=== PATIENT | male | born 1960 | race Caucasian/White ===

== ENCOUNTER 2017-12-06 12:48 | Outpatient (CLI) | payer BC | END 2017-12-06 23:59 | LOC: RAD 12:48 | PROVIDERS: ATTEND Nurse Practitioner Family | DX: L03.115 Cellulitis of right lower limb (principal); E11.610 Type 2 diabetes mellitus with diabetic neuropathic arthropathy | CPT/HCPCS: 73718 ==

== ENCOUNTER 2021-09-21 10:55 | Inpatient (IN) | payer BC ==
[~2021-09-21] VITALS: Ht 177.8 cm; Wt 131.5 kg
[2021-09-21] MEDS ORDERED: METF-436 PO (14:17)
[2021-09-21] MEDS ORDERED: HYDR25TA5 PO (14:17)
[2021-09-21] MEDS ORDERED: MONT-40 PO (14:17)
[2021-09-21] MEDS ORDERED: ATOR20TA PO (14:17)
[2021-09-21] MEDS ORDERED: LISI10TA27 PO (14:17)
[2021-09-21] MEDS ORDERED: TRAZ-251 PO (14:18)
[2021-09-21] MEDS ORDERED: LANS30CA56 PO (14:18)
[2021-09-21] MEDS ORDERED: METF-438 PO (14:18)
[2021-09-21] MEDS ORDERED: AMLO10TA13 PO (14:18)
[2021-09-21] MEDS ORDERED: RIFA550T PO (14:18)
[2021-09-21] MEDS ORDERED: TELM80TA9 PO (14:18)
[2021-09-21] MEDS ORDERED: NAPR-996 PO (14:18)
[2021-09-21] MEDS ORDERED: dextrose 50%-water 50ml dispensing syringe IV PRN ×3 (14:20→15:55)
[2021-09-21] MEDS ORDERED: dextrose ORAL solution 15 GM/59 ML bottle PO PRN ×2 (14:20)
[2021-09-21] MEDS ORDERED: glucagon, human recombinant 1mg kit SUBCUT PRN (14:20)
[2021-09-21] MEDS ORDERED: MESSAGE TO PHARMACY PO ONE (14:20)
[2021-09-21] MEDS ORDERED: LORazepam 2 mg/ml vial IV ONE (14:20)
[2021-09-21 15:27] LABS: BASOPHILS % (AUTO) 0.3 % (0-1); EOSINOPHILS % (AUTO) 0.4 % (0-6); HEMATOCRIT 36.1 % (42.0-52.0); HEMOGLOBIN 12.5 g/dl (14.0-17.9); LYMPHOCYTES # (AUTO) 0.4 X10'3 (1.1-4.8); LYMPHOCYTES % (AUTO) 8.2 % (21-51); MEAN CORPUSCULAR HEMOGLOBIN 33.7 PG (27.0-31.0); MEAN CORPUSCULAR HGB CONC 34.7 g/dL (33.0-36.5); MEAN CORPUSCULAR VOLUME 97.1 FL (78-98); MEAN PLATELET VOLUME 8.2 FL (7.4-10.4); MONOCYTES # (AUTO) 0.7 X10'3 (0-0.9); NEUTROPHILS # (AUTO) 3.9 X10'3 (1.8-7.7); NEUTROPHILS % (AUTO) 78.1 % (42-75); PLATELET COUNT 137 X10'3 (140-440); RED BLOOD COUNT 3.72 X10'6 (4.70-6.10); RED CELL DISTRIBUTION WIDTH 15.2 % (11.5-14.5)
[2021-09-21] MEDS ORDERED: potassium Cl 20 mEq SR tablet PO PRN (15:35)
[2021-09-21] MEDS ORDERED: magnesium 2GM in 50ml NS 50 ML IV PRN (15:35)
[2021-09-21] MEDS ORDERED: mag hydrox/Alum hydrox/simeth 30ml oral suspension PO PRN (15:35)
[2021-09-21] MEDS ORDERED: magnesium hydroxide 30ml (MOM) UD suspension PO PRN (15:35)
[2021-09-21] MEDS ORDERED: magnesium 4gm in 100ml NS 100 ML IV PRN (15:35)
[2021-09-21] MEDS ORDERED: potassium CL 10mEq/100ml bag 100 ML IV PRN (15:35)
[2021-09-21] MEDS ORDERED: magnesium Cl slow-release 64mg tablet PO PRN (15:35)
[2021-09-21] MEDS ORDERED: acetaminophen 325mg tablet PO PRN (15:35)
[2021-09-21] MEDS ORDERED: ondansetron/PF 4mg/2ml inj IV PRN (15:35)
[2021-09-21 15:45] LABS: ALANINE AMINOTRANSFERASE 92 U/L (12-78); ALBUMIN 2.5 G/DL (3.4-5.0); ALKALINE PHOSPHATASE 300 IU/L (46-116); ANION GAP 4 (8-16); ASPARTATE AMINO TRANSFERASE 138 U/L (10-37); BILIRUBIN,TOTAL 4.2 MG/DL (0.1-1.0); BLOOD UREA NITROGEN 9 MG/DL (7-18); BUN/CREATININE RATIO 12.2 (5.4-32.0); CALCIUM 8.6 MG/DL (8.5-10.1); CHLORIDE 99 MMOL/L (99-107); CREATININE 0.74 MG/DL (0.60-1.10); GLUCOSE 257 MG/DL (70-104); POTASSIUM 4.1 MMOL/L (3.5-5.1); SODIUM 138 MMOL/L (135-145); TOTAL CARBON DIOXIDE 34.6 MMOL/L (24-32); eGFR > 90 ML/MIN
[2021-09-21 15:50] LABS: ALBUMIN/GLOBULIN RATIO 0.7 (1.1-1.5); TOTAL PROTEIN 6.2 G/DL (6.4-8.2)
[2021-09-21] MEDS ORDERED: haloperidol lactate 5mg/ml inj IM PRN (15:55)
[2021-09-21] MEDS ORDERED: haloperidol 5mg tablet PO PRN (15:55)
[2021-09-21 16:07] LABS: HEMOGLOBIN A1C 6.3 % (4.5-6.2)
[2021-09-21] MEDS: HYDROmorphone inj. 0.5 MG/0.5 ML DISP.SYRIN IV PRN ×2 (16:07→18:29)
[2021-09-21] MEDS: normal saline 1000ml 1,000 ML IV SCH (16:09)
[2021-09-21 16:13] LABS: PLATELET ESTIMATE DECREASED; STOMATOCYTES 1+
[2021-09-21 17:08] LABS: MAGNESIUM 1.3 MG/DL (1.5-2.4)
--- NOTE | 2021-09-21 18:25 | NUR ---
Patient in room [facility]. I have received report from Lilian RNT and had the opportunity to ask questions and assume patient care.
[2021-09-21] MEDS: insulin Lispro (HumaLOG) vial - multi-dose SQ SCH (19:28)
[2021-09-21 19:44] VITALS: BP 133/72
[2021-09-21 20:00] VITALS: BP 133/72
[2021-09-21] MEDS: docusate sod 100mg capsule PO SCH (20:00)
[2021-09-21] MEDS: K and/or MAG REPLACEMENT MC SCH (20:00)
[2021-09-21] MEDS ORDERED: thiamine 100mg/ml 2ml inj. IV SCH (21:00)
[2021-09-21] MEDS: vancomycin 125mg/5ml ORAL solution 5ml UD oral syringe PO SCH (21:02)
[2021-09-21] MEDS: thiamine inj. 200 MG in normal saline 100ml IV soln 100 ML IV SCH (21:03)
[2021-09-21] MEDS: LORazepam 2 mg/ml vial IV PRN (21:10)
[2021-09-21] MEDS: insulin glargine (Lantus) pen - multi-dose SQ SCH (21:20)
[2021-09-22] VITALS (7 sets, daily range): BP systolic 132–149; BP diastolic 73–87
[2021-09-22] MEDS: vancomycin 125mg/5ml ORAL solution 5ml UD oral syringe PO SCH ×4 (01:45→20:43)
--- NOTE | 2021-09-22 04:30 | NUR ---
Pt diaphoretic, ETOH assessment completed and Ativan 2mg given .VSS at this time.Will continue to monitor.
[2021-09-22] MEDS: LORazepam 2 mg/ml vial IV PRN ×3 (04:34→22:59)
[2021-09-22] MEDS: normal saline 1000ml 1,000 ML IV SCH ×2 (05:53→20:11)
[2021-09-22 07:06] LABS: BASOPHILS # (AUTO) 0.1 X10'3 (0-0.2); BASOPHILS % (AUTO) 1.1 % (0-1); EOSINOPHILS # (AUTO) 0.1 X10'3 (0-0.9); EOSINOPHILS % (AUTO) 2.3 % (0-6); HEMATOCRIT 40.3 % (42.0-52.0); HEMOGLOBIN 13.7 g/dl (14.0-17.9); LYMPHOCYTES % (AUTO) 18.8 % (21-51); MEAN CORPUSCULAR HEMOGLOBIN 33.2 PG (27.0-31.0); MEAN CORPUSCULAR VOLUME 97.8 FL (78-98); MEAN PLATELET VOLUME 8.6 FL (7.4-10.4); MONOCYTES # (AUTO) 0.6 X10'3 (0-0.9); NEUTROPHILS # (AUTO) 3.6 X10'3 (1.8-7.7); NEUTROPHILS % (AUTO) 66.8 % (42-75); PLATELET COUNT 152 X10'3 (140-440); RED BLOOD COUNT 4.12 X10'6 (4.70-6.10); RED CELL DISTRIBUTION WIDTH 14.9 % (11.5-14.5); WHITE BLOOD COUNT 5.3 X10'3 (4.5-11.0)
--- NOTE | 2021-09-22 07:19 | NUR ---
Patient was comfortably resting when I made rounds, denied shakiness or anxiety.
[2021-09-22] MEDS: enoxaparin 40mg/0.4ml syringe SUBCUT SCH (07:25)
[2021-09-22 07:38] LABS: ALANINE AMINOTRANSFERASE 102 U/L (12-78); ALBUMIN 2.7 G/DL (3.4-5.0); ALKALINE PHOSPHATASE 316 IU/L (46-116); ANION GAP 6 (8-16); ASPARTATE AMINO TRANSFERASE 174 U/L (10-37); BILIRUBIN,TOTAL 4.6 MG/DL (0.1-1.0); BLOOD UREA NITROGEN 8 MG/DL (7-18); BUN/CREATININE RATIO 10.5 (5.4-32.0); CALCIUM 9.1 MG/DL (8.5-10.1); CHLORIDE 102 MMOL/L (99-107); CREATININE 0.76 MG/DL (0.60-1.10); GLUCOSE 135 MG/DL (70-104); SODIUM 142 MMOL/L (135-145); TOTAL CARBON DIOXIDE 34.3 MMOL/L (24-32); eGFR > 90 ML/MIN
[2021-09-22 07:39] LABS: ALBUMIN/GLOBULIN RATIO 0.7 (1.1-1.5); TOTAL PROTEIN 6.8 G/DL (6.4-8.2)
[2021-09-22] MEDS: K and/or MAG REPLACEMENT MC SCH ×2 (08:00→20:00)
[2021-09-22] MEDS: docusate sod 100mg capsule PO SCH ×2 (08:00→20:00)
--- NOTE | 2021-09-22 08:22 | NUR ---
Nutrition Consult "DM, etoh, abdominal pain": Pt hx T2DM A1C 6.3 appropriate. Pt receiving routine thiamin, folic acid on carb controlled diet per EMR. Will monitor for nutrition intervention needs this admit. Addendum: 09/22/21 at [address] Amended: Links added.
[2021-09-22] MEDS: thiamine inj. 200 MG in normal saline 100ml IV soln 100 ML IV SCH ×3 (08:37→20:44)
[2021-09-22] MEDS: folic acid 1mg/0.2ml inj IV SCH (08:37)
[2021-09-22] MEDS: HYDROmorphone inj. 0.5 MG/0.5 ML DISP.SYRIN IV PRN ×2 (08:48→20:43)
[2021-09-22] MEDS ORDERED: LIDOcaine 1% (10mg/ml)w/preservative injection 20ml MDV SQ ONE (09:20)
--- NOTE | 2021-09-22 15:32 | NUR ---
IR staff at bedside getting ready for paracentesis. Patient was given Ativan 2mg IV as per his request prior to procedure
--- NOTE | 2021-09-22 15:55 | NUR ---
Paracentesis completed. IR nurse reported 2500ml of fluid was taken out
[2021-09-22 16:36] LABS: GLUCOSE,BODY FLUID 198 MG/DL
[2021-09-22 16:45] LABS: TOTAL PROTEIN,BODY FLUID < 2.0 G/DL
--- NOTE | 2021-09-22 17:00 | NUR ---
Patient requested to be disconnected from IV fluid running as he wants "a break from it and from pump beeping" He said "I've been drinking water to hydrate myself!"
[2021-09-22 17:10] LABS: LYMPHOCYTES,BODY FLUID 44 %; MONOCYTES,BODY FLUID 37 %; NEUTROPHILS,BODY FLUID 19 %
[2021-09-22 17:11] LABS: BF RBC COUNT 88 /CU MM; BF WBC COUNT 148 /CU MM (0-1000); BFAPPEAR CLEAR; BFCOLOR YELLOW; BFVOLUME 56 ML
[2021-09-22] MEDS: insulin Lispro (HumaLOG) vial - multi-dose SQ SCH (20:42)
--- NOTE | 2021-09-22 22:20 | NUR ---
Pt reported falling while coming from the bathroom landing on his left knee and getting some visible scratches to rt shoulder.Pt states that foot got his one foot stepped over a loose sock hence losing balance and falling .Bruises were caused by the linen humper which was between the foot of the bed and wall.pt denies any pain to the left knee but has visible bruises to rt shoulder.Pt denies any other fall related concerns .Vitals WN for Pt .Will continue to monitor
[2021-09-22] MEDS: insulin glargine (Lantus) pen - multi-dose SQ SCH (22:42)
[2021-09-23] VITALS: BP 147/83
[2021-09-23] MEDS: vancomycin 125mg/5ml ORAL solution 5ml UD oral syringe PO SCH ×4 (02:05→19:28)
[2021-09-23] MEDS: HYDROmorphone inj. 0.5 MG/0.5 ML DISP.SYRIN IV PRN ×2 (05:34→09:21)
[2021-09-23 06:32] LABS: BASOPHILS # (AUTO) 0.1 X10'3 (0-0.2); BASOPHILS % (AUTO) 1.2 % (0-1); EOSINOPHILS # (AUTO) 0.2 X10'3 (0-0.9); EOSINOPHILS % (AUTO) 3.8 % (0-6); HEMATOCRIT 35.8 % (42.0-52.0); HEMOGLOBIN 12.4 g/dl (14.0-17.9); LYMPHOCYTES % (AUTO) 21.7 % (21-51); MEAN CORPUSCULAR HEMOGLOBIN 33.8 PG (27.0-31.0); MEAN CORPUSCULAR HGB CONC 34.7 g/dL (33.0-36.5); MEAN CORPUSCULAR VOLUME 97.4 FL (78-98); MEAN PLATELET VOLUME 8.1 FL (7.4-10.4); MONOCYTES # (AUTO) 0.6 X10'3 (0-0.9); MONOCYTES % (AUTO) 12.7 % (2-12); NEUTROPHILS # (AUTO) 2.8 X10'3 (1.8-7.7); NEUTROPHILS % (AUTO) 60.6 % (42-75); PLATELET COUNT 129 X10'3 (140-440); RED BLOOD COUNT 3.68 X10'6 (4.70-6.10); RED CELL DISTRIBUTION WIDTH 15.1 % (11.5-14.5); WHITE BLOOD COUNT 4.6 X10'3 (4.5-11.0)
--- NOTE | 2021-09-23 06:47 | NUR ---
Report given to Bhakti ANGELES.Questions answered and plan of care reviewed
[2021-09-23 06:55] LABS: ALANINE AMINOTRANSFERASE 94 U/L (12-78); ALBUMIN 2.2 G/DL (3.4-5.0); ALKALINE PHOSPHATASE 276 IU/L (46-116); ANION GAP 7 (8-16); ASPARTATE AMINO TRANSFERASE 192 U/L (10-37); BILIRUBIN,TOTAL 4.7 MG/DL (0.1-1.0); BLOOD UREA NITROGEN 8 MG/DL (7-18); BUN/CREATININE RATIO 13.8 (5.4-32.0); CALCIUM 8.8 MG/DL (8.5-10.1); CHLORIDE 103 MMOL/L (99-107); CREATININE 0.58 MG/DL (0.60-1.10); GLUCOSE 110 MG/DL (70-104); POTASSIUM 3.6 MMOL/L (3.5-5.1); SODIUM 142 MMOL/L (135-145); TOTAL CARBON DIOXIDE 32.5 MMOL/L (24-32); eGFR > 90 ML/MIN
[2021-09-23 07:00] VITALS: BP 163/91
--- NOTE | 2021-09-23 07:00 | NUR ---
Patient in room [facility]. I have received report from KARTHIK Quintana and had the opportunity to ask questions and assume patient care.
[2021-09-23 07:08] LABS: ALBUMIN/GLOBULIN RATIO 0.6 (1.1-1.5); TOTAL PROTEIN 5.7 G/DL (6.4-8.2)
[2021-09-23] MEDS: docusate sod 100mg capsule PO SCH ×2 (08:00→19:28)
[2021-09-23] MEDS: K and/or MAG REPLACEMENT MC SCH ×2 (08:00→20:00)
[2021-09-23] MEDS: thiamine inj. 200 MG in normal saline 100ml IV soln 100 ML IV SCH ×3 (09:02→20:26)
[2021-09-23] MEDS: enoxaparin 40mg/0.4ml syringe SUBCUT SCH (09:03)
[2021-09-23] MEDS: folic acid 1mg/0.2ml inj IV SCH (09:03)
[2021-09-23] MEDS: insulin Lispro (HumaLOG) vial - multi-dose SQ SCH ×3 (09:15→19:32)
[2021-09-23 11:00] VITALS: BP 138/69
[2021-09-23] MEDS: LORazepam 2 mg/ml vial IV PRN ×2 (12:04→21:33)
[2021-09-23] MEDS: HYDROmorphone/PF 0.2 MG/ML SYRINGE IV PRN ×2 (15:55→20:27)
[2021-09-23 18:00] VITALS: BP 158/81
--- NOTE | 2021-09-23 18:20 | NUR ---
Problems reprioritized. Patient report given, questions answered & plan of care reviewed with KARTHIK Rubio.
--- NOTE | 2021-09-23 18:42 | NUR ---
Patient in room [facility]. I have received report from KENDRICK ANGELES and had the opportunity to ask questions and assume patient care.
[2021-09-23] MEDS: insulin glargine (Lantus) pen - multi-dose SQ SCH (21:41)
[2021-09-23] MEDS: LORazepam 1 MG tablet PO PRN (23:46)
[2021-09-24] VITALS: BP 142/85
[2021-09-24] MEDS: vancomycin 125mg/5ml ORAL solution 5ml UD oral syringe PO SCH ×4 (02:37→20:11)
[2021-09-24] MEDS: LORazepam 1 MG tablet PO PRN ×5 (02:42→22:08)
[2021-09-24 06:04] LABS: BASOPHILS % (AUTO) 0.9 % (0-1); EOSINOPHILS # (AUTO) 0.2 X10'3 (0-0.9); EOSINOPHILS % (AUTO) 3.7 % (0-6); HEMATOCRIT 37.3 % (42.0-52.0); HEMOGLOBIN 12.7 g/dl (14.0-17.9); LYMPHOCYTES # (AUTO) 1.1 X10'3 (1.1-4.8); LYMPHOCYTES % (AUTO) 21.5 % (21-51); MEAN CORPUSCULAR HEMOGLOBIN 33.4 PG (27.0-31.0); MEAN CORPUSCULAR HGB CONC 34.1 g/dL (33.0-36.5); MEAN PLATELET VOLUME 7.8 FL (7.4-10.4); MONOCYTES # (AUTO) 0.6 X10'3 (0-0.9); MONOCYTES % (AUTO) 12.5 % (2-12); NEUTROPHILS % (AUTO) 61.4 % (42-75); PLATELET COUNT 126 X10'3 (140-440); RED BLOOD COUNT 3.81 X10'6 (4.70-6.10); RED CELL DISTRIBUTION WIDTH 15.5 % (11.5-14.5)
[2021-09-24 06:17] LABS: ALANINE AMINOTRANSFERASE 104 U/L (12-78); ALBUMIN 2.2 G/DL (3.4-5.0); ALKALINE PHOSPHATASE 302 IU/L (46-116); ANION GAP 6 (8-16); ASPARTATE AMINO TRANSFERASE 207 U/L (10-37); BILIRUBIN,TOTAL 5.5 MG/DL (0.1-1.0); BLOOD UREA NITROGEN 9 MG/DL (7-18); BUN/CREATININE RATIO 14.5 (5.4-32.0); CALCIUM 8.5 MG/DL (8.5-10.1); CHLORIDE 102 MMOL/L (99-107); CREATININE 0.62 MG/DL (0.60-1.10); GLUCOSE 94 MG/DL (70-104); POTASSIUM 3.4 MMOL/L (3.5-5.1); SODIUM 141 MMOL/L (135-145); TOTAL CARBON DIOXIDE 32.7 MMOL/L (24-32); eGFR > 90 ML/MIN
[2021-09-24 06:26] LABS: ALBUMIN/GLOBULIN RATIO 0.6 (1.1-1.5); TOTAL PROTEIN 5.7 G/DL (6.4-8.2)
--- NOTE | 2021-09-24 06:36 | NUR ---
Problems reprioritized. Patient report given, questions answered & plan of care reviewed with SANDRA ANGELES.
[2021-09-24 08:00] VITALS: BP 151/91
[2021-09-24] MEDS: docusate sod 100mg capsule PO SCH ×2 (08:00→20:00)
[2021-09-24] MEDS: K and/or MAG REPLACEMENT MC SCH ×2 (08:00→20:08)
[2021-09-24] MEDS: HYDROmorphone inj. 0.5 MG/0.5 ML DISP.SYRIN IV PRN ×3 (09:22→20:17)
[2021-09-24] MEDS: thiamine inj. 200 MG in normal saline 100ml IV soln 100 ML IV SCH ×2 (09:29→14:12)
[2021-09-24] MEDS: folic acid 1mg/0.2ml inj IV SCH (09:30)
[2021-09-24] MEDS: potassium Cl 20 mEq SR tablet PO PRN ×2 (09:36→14:13)
[2021-09-24] MEDS: enoxaparin 40mg/0.4ml syringe SUBCUT SCH (09:36)
[2021-09-24] MEDS: spironolactone 25 MG tablet PO SCH (09:42)
[2021-09-24] MEDS: furosemide 40mg tablet PO SCH (09:43)
[2021-09-24 12:00] VITALS: BP 124/74
[2021-09-24] MEDS ORDERED: chloestyramine/aspartame 4gm packet PO ONE (12:50)
[2021-09-24] MEDS: insulin Lispro (HumaLOG) vial - multi-dose SQ SCH ×2 (14:04→20:18)
--- NOTE | 2021-09-24 18:30 | NUR ---
Patient in room [facility]. I have received report from KARTHIK Bustillos and had the opportunity to ask questions and assume patient care. Addendum: 09/24/21 at 2114 by Lesley Srivastava RN Amended: Links added.
--- NOTE | 2021-09-24 20:02 | NUR ---
Report given to Korina ANGELES, all questions answered.
[2021-09-24] MEDS ORDERED: potassium Cl 20 mEq SR tablet PO PRN ×2 (20:05)
[2021-09-24] MEDS ORDERED: potassium Cl 40MEQ/1/2NS 520ml 520 ML IV PRN (20:05)
[2021-09-24] MEDS ORDERED: magnesium Cl slow-release 64mg tablet PO PRN (20:05)
[2021-09-24] MEDS ORDERED: magnesium 4gm in 100ml NS 100 ML IV PRN (20:05)
[2021-09-24] MEDS: rifaximin 550mg tablet PO SCH (20:11)
[2021-09-24] MEDS: lactobacillus rhamnosus 10,000 MMU CELLS/CAPSULE PO SCH (20:12)
[2021-09-24] MEDS: traZODone 50mg tablet PO SCH (20:12)
[2021-09-24] MEDS: atorvastatin 20mg tablet PO SCH (20:12)
[2021-09-24 20:30] VITALS: BP 141/83
[2021-09-24] MEDS: insulin glargine (Lantus) pen - multi-dose SQ SCH (22:11)
[2021-09-24 22:17] VITALS: BP 156/88
[2021-09-25] MEDS: vancomycin 125mg/5ml ORAL solution 5ml UD oral syringe PO SCH ×4 (02:24→20:48)
[2021-09-25] MEDS: LORazepam 1 MG tablet PO PRN ×2 (02:25→20:54)
--- NOTE | 2021-09-25 02:30 | NUR ---
ativan given per pt request, some "shaking" pt states Addendum: 09/25/21 at 0230 by Lesley Srivastava RN Amended: Links added.
[2021-09-25 05:54] LABS: BASOPHILS # (AUTO) 0.1 X10'3 (0-0.2); EOSINOPHILS # (AUTO) 0.2 X10'3 (0-0.9); EOSINOPHILS % (AUTO) 4.1 % (0-6); HEMATOCRIT 35.9 % (42.0-52.0); HEMOGLOBIN 12.4 g/dl (14.0-17.9); LYMPHOCYTES # (AUTO) 1.1 X10'3 (1.1-4.8); LYMPHOCYTES % (AUTO) 20.5 % (21-51); MEAN CORPUSCULAR HEMOGLOBIN 33.6 PG (27.0-31.0); MEAN CORPUSCULAR HGB CONC 34.6 g/dL (33.0-36.5); MEAN PLATELET VOLUME 7.9 FL (7.4-10.4); MONOCYTES # (AUTO) 0.8 X10'3 (0-0.9); MONOCYTES % (AUTO) 14.5 % (2-12); NEUTROPHILS # (AUTO) 3.2 X10'3 (1.8-7.7); NEUTROPHILS % (AUTO) 59.9 % (42-75); PLATELET COUNT 116 X10'3 (140-440); RED CELL DISTRIBUTION WIDTH 15.5 % (11.5-14.5); WHITE BLOOD COUNT 5.3 X10'3 (4.5-11.0)
--- NOTE | 2021-09-25 06:11 | NUR ---
Problems reprioritized. Patient report given, questions answered & plan of care reviewed with KARTHIK CABRERA. Addendum: 09/25/21 at 0612 by eLsley Srivastava RN Amended: Links added.
[2021-09-25 06:17] LABS: ALANINE AMINOTRANSFERASE 94 U/L (12-78); ALKALINE PHOSPHATASE 274 IU/L (46-116); ANION GAP 8 (8-16); ASPARTATE AMINO TRANSFERASE 159 U/L (10-37); BILIRUBIN,TOTAL 5.4 MG/DL (0.1-1.0); BLOOD UREA NITROGEN 9 MG/DL (7-18); BUN/CREATININE RATIO 15.8 (5.4-32.0); CALCIUM 8.8 MG/DL (8.5-10.1); CHLORIDE 103 MMOL/L (99-107); CREATININE 0.57 MG/DL (0.60-1.10); GLUCOSE 101 MG/DL (70-104); SODIUM 142 MMOL/L (135-145); TOTAL CARBON DIOXIDE 31.2 MMOL/L (24-32); eGFR > 90 ML/MIN
[2021-09-25 06:24] LABS: ALBUMIN/GLOBULIN RATIO 0.6 (1.1-1.5); POTASSIUM 3.6 MMOL/L (3.5-5.1); TOTAL PROTEIN 5.5 G/DL (6.4-8.2)
--- NOTE | 2021-09-25 06:30 | NUR ---
Patient in room [facility]. I have received report from Bryn hodgson and had the opportunity to ask questions and assume patient care.
[2021-09-25] MEDS: lansoprazole 15mg solutab PO SCH (07:45)
[2021-09-25] MEDS: rifaximin 550mg tablet PO SCH ×2 (07:45→20:46)
[2021-09-25] MEDS: montelukast 10mg tablet PO SCH (07:47)
[2021-09-25] MEDS: losartan 50mg tablet PO SCH (07:48)
[2021-09-25] MEDS: docusate sod 100mg capsule PO SCH ×2 (07:49→20:00)
[2021-09-25] MEDS: lisinopril 10 MG tablet PO SCH (07:49)
[2021-09-25] MEDS: lactobacillus rhamnosus 10,000 MMU CELLS/CAPSULE PO SCH ×2 (07:49→20:47)
[2021-09-25] MEDS: furosemide 40mg tablet PO SCH (07:49)
[2021-09-25] MEDS: enoxaparin 40mg/0.4ml syringe SUBCUT SCH (07:50)
[2021-09-25] MEDS: spironolactone 25 MG tablet PO SCH (07:52)
[2021-09-25] MEDS: HYDROmorphone inj. 0.5 MG/0.5 ML DISP.SYRIN IV PRN ×3 (07:54→20:55)
[2021-09-25 08:00] VITALS: BP 142/83
[2021-09-25] MEDS: K and/or MAG REPLACEMENT MC SCH ×4 (08:00→20:00)
--- NOTE | 2021-09-25 09:40 | NUR ---
pt did not eat breakfast and was a blood sugar of 111. no coverage needed
[2021-09-25] MEDS: chloestyramine/aspartame 4gm packet PO SCH (11:08)
[2021-09-25 11:25] VITALS: BP 123/78
[2021-09-25] MEDS: insulin Lispro (HumaLOG) vial - multi-dose SQ SCH ×2 (14:11→18:59)
[2021-09-25] MEDS: LORazepam 2 mg/ml vial IV PRN (14:22)
--- NOTE | 2021-09-25 14:28 | NUR ---
pt had a 1200 BS of 153 at lunch, pt wasn't feeling like eating much. so i just replaced pts correctional dose.
[2021-09-25] MEDS ORDERED: LORazepam 2 mg/ml vial IV PRN (15:55)
--- NOTE | 2021-09-25 18:17 | NUR ---
Patient in room [facility]. I have received report from KARTHIK Ravi and had the opportunity to ask questions and assume patient care.
--- NOTE | 2021-09-25 18:23 | NUR ---
Problems reprioritized. Patient report given, questions answered & plan of care reviewed with martin hodgson.
[2021-09-25 20:00] VITALS: BP 144/85
[2021-09-25] MEDS ORDERED: loperamide 2mg capsule PO PRN (20:25)
[2021-09-25] MEDS: atorvastatin 20mg tablet PO SCH (20:47)
[2021-09-25] MEDS: traZODone 50mg tablet PO SCH (20:47)
[2021-09-25] MEDS: insulin glargine (Lantus) pen - multi-dose SQ SCH (20:57)
[2021-09-26] VITALS: BP 127/71
[2021-09-26] MEDS: vancomycin 125mg/5ml ORAL solution 5ml UD oral syringe PO SCH ×4 (02:33→21:02)
[2021-09-26] MEDS: HYDROmorphone inj. 0.5 MG/0.5 ML DISP.SYRIN IV PRN (02:35)
[2021-09-26 06:30] LABS: BASOPHILS # (AUTO) 0.1 X10'3 (0-0.2); BASOPHILS % (AUTO) 1.4 % (0-1); EOSINOPHILS # (AUTO) 0.3 X10'3 (0-0.9); EOSINOPHILS % (AUTO) 3.7 % (0-6); HEMATOCRIT 41.6 % (42.0-52.0); HEMOGLOBIN 13.7 g/dl (14.0-17.9); LYMPHOCYTES # (AUTO) 1.4 X10'3 (1.1-4.8); LYMPHOCYTES % (AUTO) 20.2 % (21-51); MEAN CORPUSCULAR VOLUME 100.2 FL (78-98); MEAN PLATELET VOLUME 9.2 FL (7.4-10.4); MONOCYTES % (AUTO) 14.6 % (2-12); NEUTROPHILS # (AUTO) 4.1 X10'3 (1.8-7.7); NEUTROPHILS % (AUTO) 60.1 % (42-75); PLATELET COUNT 129 X10'3 (140-440); RED BLOOD COUNT 4.15 X10'6 (4.70-6.10); RED CELL DISTRIBUTION WIDTH 15.8 % (11.5-14.5); WHITE BLOOD COUNT 6.8 X10'3 (4.5-11.0)
[2021-09-26 06:33] LABS: ALANINE AMINOTRANSFERASE 87 U/L (12-78); ALBUMIN 2.3 G/DL (3.4-5.0); ALKALINE PHOSPHATASE 263 IU/L (46-116); ANION GAP 9 (8-16); ASPARTATE AMINO TRANSFERASE 111 U/L (10-37); BILIRUBIN,TOTAL 5.8 MG/DL (0.1-1.0); BLOOD UREA NITROGEN 7 MG/DL (7-18); BUN/CREATININE RATIO 9.7 (5.4-32.0); CALCIUM 9.4 MG/DL (8.5-10.1); CHLORIDE 103 MMOL/L (99-107); CREATININE 0.72 MG/DL (0.60-1.10); GLUCOSE 109 MG/DL (70-104); SODIUM 141 MMOL/L (135-145); TOTAL CARBON DIOXIDE 28.8 MMOL/L (24-32); eGFR > 90 ML/MIN
[2021-09-26 06:34] LABS: ALBUMIN/GLOBULIN RATIO 0.6 (1.1-1.5); POTASSIUM 3.8 MMOL/L (3.5-5.1); TOTAL PROTEIN 6.1 G/DL (6.4-8.2)
--- NOTE | 2021-09-26 06:37 | NUR ---
Problems reprioritized. Patient report given, questions answered & plan of care reviewed with KARTHIK Ya.
[2021-09-26 07:00] VITALS: BP 119/68
[2021-09-26] MEDS: K and/or MAG REPLACEMENT MC SCH ×2 (08:00)
[2021-09-26] MEDS: docusate sod 100mg capsule PO SCH ×2 (08:00→20:15)
[2021-09-26] MEDS: lactobacillus rhamnosus 10,000 MMU CELLS/CAPSULE PO SCH ×2 (08:38→21:02)
[2021-09-26] MEDS: rifaximin 550mg tablet PO SCH ×2 (08:38→21:02)
[2021-09-26] MEDS: lansoprazole 15mg solutab PO SCH (08:39)
[2021-09-26] MEDS: losartan 50mg tablet PO SCH (08:40)
[2021-09-26] MEDS: spironolactone 25 MG tablet PO SCH (08:41)
[2021-09-26] MEDS: thiamine 100mg tablet PO SCH (08:41)
[2021-09-26] MEDS: lisinopril 10 MG tablet PO SCH (08:42)
[2021-09-26] MEDS: montelukast 10mg tablet PO SCH (08:42)
[2021-09-26] MEDS: furosemide 40mg tablet PO SCH (08:42)
[2021-09-26] MEDS: folic acid 1mg tablet PO SCH (08:43)
[2021-09-26] MEDS: enoxaparin 40mg/0.4ml syringe SUBCUT SCH (08:44)
[2021-09-26] MEDS: HYDROmorphone/PF 0.2 MG/ML SYRINGE IV PRN (08:52)
[2021-09-26] MEDS: LORazepam 1 MG tablet PO PRN ×2 (08:52→19:57)
--- NOTE | 2021-09-26 10:55 | NUR ---
IR team to bedside. Patient consented by IR PA. US performed by IR PA. Per IR PA not enough fluid to drain.
[2021-09-26 11:00] VITALS: BP 155/74
--- NOTE | 2021-09-26 11:59 | NUR ---
Initial: Pt transferred from previous facility w/ C.diff, recent CT showed colitis and cholelithiasis, also w/ sepsis per EMR. Pt noted to have abd pain and vomiting, usually consumes ~10 beers per day. Pt currently on CCHO diet w/ moderate PO intake, avg 53% x 12 meals though has been declining recently, not meeting needs. D/w RN that Pt may benefit from Low Fiber diet if diarrhea persists, additionally CCHO diet may not be indicated as current A1C 6.3. Also recommend Ensure Enlive TID to help meet increased protein needs. Per RN, pt continues w/ diarrhea today. Will continue to monitor and make recommendations as appropriate. Recs: 1. Low fiber diet if MD agreeable 2. Ensure Enlive TID; pending MD verification 3. Anti-diarrheal meds per MD discretion 4. Scaled wt this admit, subsequent weekly wts 5. If PO does not improve, pt may benefit from supplemental TF to help meed increased nutrient needs Addendum: 09/26/21 at [address] Amended: Links added.
[2021-09-26] MEDS: chloestyramine/aspartame 4gm packet PO SCH (12:03)
[2021-09-26] MEDS ORDERED: lactose-reduced food (Ensure Enlive) - 237ml bottle PO SCH (13:00)
[2021-09-26] MEDS: HYDROcodone/acetaminophen 10/325mg tab PO PRN ×2 (13:43→17:45)
[2021-09-26] MEDS: insulin Lispro (HumaLOG) vial - multi-dose SQ SCH (13:46)
[2021-09-26 18:00] VITALS: BP 152/74
--- NOTE | 2021-09-26 18:30 | NUR ---
I have received report from KARTHIK Ya and had the opportunity to ask questions and assume patient care.
--- NOTE | 2021-09-26 18:38 | NUR ---
Problems reprioritized. Patient report given, questions answered & plan of care reviewed with KARTHIK Mei and patrick Krishnan RN.
[2021-09-26] MEDS: traZODone 50mg tablet PO SCH (21:02)
[2021-09-26] MEDS: atorvastatin 20mg tablet PO SCH (21:02)
[2021-09-26] MEDS: insulin glargine (Lantus) pen - multi-dose SQ SCH (21:18)
[2021-09-27 00:02] VITALS: BP 162/98
[2021-09-27] MEDS: vancomycin 125mg/5ml ORAL solution 5ml UD oral syringe PO SCH ×4 (02:05→20:18)
[2021-09-27] MEDS: HYDROcodone/acetaminophen 10/325mg tab PO PRN ×3 (02:11→14:30)
--- NOTE | 2021-09-27 06:14 | NUR ---
I agree with KARTHIK Krishnanmainspring winder and oiler, assessments, and report given to KARTHIK Granados
--- NOTE | 2021-09-27 06:36 | NUR ---
Problems reprioritized. Patient report given, questions answered & plan of care reviewed with KARTHIK Bell.
[2021-09-27 07:00] VITALS: BP 156/80
[2021-09-27] MEDS: docusate sod 100mg capsule PO SCH ×2 (08:00→20:19)
[2021-09-27] MEDS: lansoprazole 15mg solutab PO SCH (08:13)
[2021-09-27] MEDS: folic acid 1mg tablet PO SCH (08:13)
[2021-09-27] MEDS: LORazepam 1 MG tablet PO PRN ×2 (08:14→21:39)
[2021-09-27] MEDS: losartan 50mg tablet PO SCH (08:14)
[2021-09-27] MEDS: montelukast 10mg tablet PO SCH (08:14)
[2021-09-27] MEDS: lisinopril 10 MG tablet PO SCH (08:15)
[2021-09-27] MEDS: rifaximin 550mg tablet PO SCH ×2 (08:15→20:20)
[2021-09-27] MEDS: enoxaparin 40mg/0.4ml syringe SUBCUT SCH (08:15)
[2021-09-27] MEDS: spironolactone 25 MG tablet PO SCH (08:16)
[2021-09-27] MEDS: thiamine 100mg tablet PO SCH (08:16)
[2021-09-27] MEDS: lactobacillus rhamnosus 10,000 MMU CELLS/CAPSULE PO SCH ×2 (08:16→20:20)
[2021-09-27] MEDS: furosemide 40mg tablet PO SCH (08:17)
[2021-09-27] MEDS: insulin Lispro (HumaLOG) vial - multi-dose SQ SCH ×3 (10:15→20:40)
[2021-09-27 11:00] VITALS: BP 118/69
--- NOTE | 2021-09-27 12:17 | NUR ---
message to dr diaz "PAGER ID: [phone] MESSAGE: dr dietz is not planning to scope pt, if you still want him scoped, you'll need to reach out to him with reason per GI lab. thanks [phone]"
[2021-09-27] MEDS: traZODone 50mg tablet PO SCH (20:19)
[2021-09-27] MEDS: atorvastatin 20mg tablet PO SCH (20:20)
[2021-09-27] MEDS: HYDROmorphone inj. 0.5 MG/0.5 ML DISP.SYRIN IV PRN (21:39)
[2021-09-27] MEDS: insulin glargine (Lantus) pen - multi-dose SQ SCH (21:48)
[2021-09-28] VITALS: BP 129/70
[2021-09-28] MEDS: vancomycin 125mg/5ml ORAL solution 5ml UD oral syringe PO SCH ×3 (02:50→13:43)
[2021-09-28] MEDS: HYDROcodone/acetaminophen 10/325mg tab PO PRN ×2 (06:06→15:31)
--- NOTE | 2021-09-28 06:10 | NUR ---
Report given to Arabella ANGELES , questions answered and plan of care reviewed .
[2021-09-28 06:33] LABS: BASOPHILS # (AUTO) 0.1 X10'3 (0-0.2); BASOPHILS % (AUTO) 1.4 % (0-1); EOSINOPHILS # (AUTO) 0.2 X10'3 (0-0.9); EOSINOPHILS % (AUTO) 3.4 % (0-6); HEMATOCRIT 35.8 % (42.0-52.0); HEMOGLOBIN 12.2 g/dl (14.0-17.9); LYMPHOCYTES # (AUTO) 1.1 X10'3 (1.1-4.8); LYMPHOCYTES % (AUTO) 20.4 % (21-51); MEAN CORPUSCULAR VOLUME 97.2 FL (78-98); MEAN PLATELET VOLUME 8.8 FL (7.4-10.4); MONOCYTES # (AUTO) 0.8 X10'3 (0-0.9); MONOCYTES % (AUTO) 15.3 % (2-12); NEUTROPHILS # (AUTO) 3.3 X10'3 (1.8-7.7); NEUTROPHILS % (AUTO) 59.5 % (42-75); PLATELET COUNT 146 X10'3 (140-440); RED BLOOD COUNT 3.68 X10'6 (4.70-6.10); RED CELL DISTRIBUTION WIDTH 15.6 % (11.5-14.5); WHITE BLOOD COUNT 5.5 X10'3 (4.5-11.0)
[2021-09-28 06:54] LABS: ALANINE AMINOTRANSFERASE 66 U/L (12-78); ALBUMIN 2.3 G/DL (3.4-5.0); ALKALINE PHOSPHATASE 236 IU/L (46-116); ANION GAP 9 (8-16); ASPARTATE AMINO TRANSFERASE 88 U/L (10-37); BLOOD UREA NITROGEN 8 MG/DL (7-18); BUN/CREATININE RATIO 11.3 (5.4-32.0); CALCIUM 8.9 MG/DL (8.5-10.1); CHLORIDE 106 MMOL/L (99-107); CREATININE 0.71 MG/DL (0.60-1.10); GLUCOSE 120 MG/DL (70-104); MAGNESIUM 1.4 MG/DL (1.5-2.4); SODIUM 144 MMOL/L (135-145); TOTAL CARBON DIOXIDE 28.7 MMOL/L (24-32); eGFR > 90 ML/MIN
[2021-09-28] MEDS: docusate sod 100mg capsule PO SCH (06:54)
[2021-09-28 06:56] LABS: ALBUMIN/GLOBULIN RATIO 0.6 (1.1-1.5); PHOSPHORUS 2.9 MG/DL (2.3-4.5); TOTAL PROTEIN 5.9 G/DL (6.4-8.2)
[2021-09-28 07:01] LABS: POTASSIUM 2.8 MMOL/L (3.5-5.1)
[2021-09-28 07:50] LABS: TOTAL CELLS COUNTED 100
[2021-09-28 07:51] LABS: PLATELET ESTIMATE NORMAL
[2021-09-28 08:00] VITALS: BP 142/76
[2021-09-28] MEDS: lansoprazole 15mg solutab PO SCH (08:08)
[2021-09-28] MEDS: enoxaparin 40mg/0.4ml syringe SUBCUT SCH (08:08)
[2021-09-28] MEDS: LORazepam 1 MG tablet PO PRN (08:09)
[2021-09-28] MEDS: rifaximin 550mg tablet PO SCH (08:09)
[2021-09-28] MEDS: furosemide 40mg tablet PO SCH (08:09)
[2021-09-28] MEDS: lactobacillus rhamnosus 10,000 MMU CELLS/CAPSULE PO SCH (08:09)
[2021-09-28] MEDS: spironolactone 25 MG tablet PO SCH (08:09)
[2021-09-28] MEDS: folic acid 1mg tablet PO SCH (08:09)
[2021-09-28] MEDS: losartan 50mg tablet PO SCH (08:09)
[2021-09-28] MEDS: montelukast 10mg tablet PO SCH ×2 (08:09→10:00)
[2021-09-28] MEDS: thiamine 100mg tablet PO SCH (08:10)
[2021-09-28] MEDS: lisinopril 10 MG tablet PO SCH (08:10)
[2021-09-28] MEDS ORDERED: magnesium Cl slow-release 64mg tablet PO PRN (09:10)
[2021-09-28] MEDS ORDERED: potassium Cl 40MEQ/1/2NS 520ml 520 ML IV PRN (09:10)
[2021-09-28] MEDS ORDERED: magnesium 4gm in 100ml NS 100 ML IV PRN (09:10)
[2021-09-28] MEDS ORDERED: potassium Cl 20 mEq SR tablet PO PRN ×2 (09:10)
[2021-09-28 12:00] VITALS: BP 140/73
[2021-09-28] MEDS ORDERED: THIA50TA10 PO (13:26)
[2021-09-28] MEDS ORDERED: VANC5VIA PO (13:26)
[2021-09-28] MEDS ORDERED: FURO40TA4 PO (13:26)
[2021-09-28] MEDS ORDERED: FOLI0.4T6 PO (13:26)
[2021-09-28] MEDS ORDERED: LOPE2CAP PO (13:26)
[2021-09-28] MEDS ORDERED: LACT1CAP26 PO (13:26)
[2021-09-28] MEDS ORDERED: SPIR25TA PO (13:26)
[2021-09-28] MEDS ORDERED: MAGN400C PO (13:29)
[2021-09-28] MEDS ORDERED: potassium Cl 20 mEq SR tablet PO STA (13:36)
[2021-09-28] MEDS ORDERED: magnesium oxide 400mg tablet PO ONE (13:40)
--- NOTE | 2021-09-28 13:51 | NUR ---
PAGER ID: [phone] MESSAGE: [facility] [phone] Re: Kurtis [phone] please call re: patient states he wants [place] and Ativan
[2021-09-28 14:00] VITALS: BP 140/90
--- NOTE | 2021-09-28 17:42 | NUR ---
scripts [facility] [phone].
[2021-09-28] MEDS ORDERED: K and/or MAG REPLACEMENT MC SCH (20:00)
== END 2021-09-28 15:45 | disposition home or self-care (01) | DRG 872 ==
LOC: UNDOADMIN 13:38 → EEVIPCON 13:38 → SUR 3N 13:38 → EEVIPCON 15:39 → SUR 3N 15:39
PROVIDERS: ADMIT Family Medicine; ATTEND Family Medicine
PROC: 0W9G3ZZ Drainage of Peritoneal Cavity, Percutaneous Approach (ICD-10-PCS; principal; 2021-09-22)
DX: A41.9 Sepsis, unspecified organism (principal); A04.71 Enterocolitis due to Clostridium difficile, recurrent; K76.6 Portal hypertension; R18.8 Other ascites; F10.20 Alcohol dependence, uncomplicated; E11.9 Type 2 diabetes mellitus without complications; K52.9 Noninfective gastroenteritis and colitis, unspecified; I10 Essential (primary) hypertension; K70.9 Alcoholic liver disease, unspecified; K74.60 Unspecified cirrhosis of liver; K80.20 Calculus of gallbladder without cholecystitis without obstruction; Z88.1 Allergy status to other antibiotic agents; Z88.5 Allergy status to narcotic agent; Z79.899 Other long term (current) drug therapy; Z71.41 Alcohol abuse counseling and surveillance of alcoholic
CPT/HCPCS: 36415; 49083; 76705; 80053; 82945; 82948; 83036; 83605; 83735; 84100; 84132; 84157; 85007; 85008; 85025; 85610; 86140; 87070; 87081; 89051; 97530; G0378; J1170; J1650; J1815; J2060; J3411; J3490; J7030